=== PATIENT | female | born 1970 | race African-American/Black ===

== ENCOUNTER 2016-07-06 20:36 | Emergency (ER) | payer MEDICAID ==
[~2016-07-06] VITALS: Ht 157.5 cm; Wt 68.1 kg
[2016-07-06 20:38] VITALS: BP 96/62
== END 2016-07-06 23:19 | disposition home or self-care (01) ==
LOC: ED 23:01
DX: G89.11 Acute pain due to trauma (principal); M25.562 Pain in left knee; Z87.891 Personal history of nicotine dependence
CPT/HCPCS: 29505

== ENCOUNTER 2016-08-31 17:39 | Emergency (ER) | payer MEDICAID ==
[~2016-08-31] VITALS: Ht 157.5 cm; Wt 64.6 kg
[2016-08-31 17:44] VITALS: BP 110/61
[2016-08-31] MEDS ORDERED: HYDROcodone/APAP 5/325 TABLET PO STA (18:12)
[2016-08-31] MEDS ORDERED: HYDROcodone/APAP 5/325 TABLET ONE (18:19)
== END 2016-08-31 18:59 | disposition home or self-care (01) ==
LOC: ED 18:01
DX: S80.02XA Contusion of left knee, initial encounter (principal); W19.XXXA Unspecified fall, initial encounter; Y93.89 Activity, other specified; Y99.8 Other external cause status; Y92.89 Other specified places as the place of occurrence of the external cause

== ENCOUNTER 2016-10-02 09:43 | Emergency (ER) | payer MEDICAID ==
[~2016-10-02] VITALS: Ht 157.5 cm; Wt 63.9 kg
[2016-10-02 09:44] VITALS: BP 124/55
== END 2016-10-02 10:54 | disposition home or self-care (01) ==
LOC: ED 10:48
DX: S60.221A Contusion of right hand, initial encounter (principal); M19.90 Unspecified osteoarthritis, unspecified site; W31.9XXA Contact with unspecified machinery, initial encounter; Y93.89 Activity, other specified; Y92.009 Unspecified place in unspecified non-institutional (private) residence as the place of occurrence of the external cause; Y99.8 Other external cause status
CPT/HCPCS: 99284

== ENCOUNTER 2016-10-30 13:49 | Emergency (ER) | payer MEDICAID ==
[~2016-10-30] VITALS: Ht 157.5 cm; Wt 64.4 kg
[2016-10-30 13:52] VITALS: BP 111/74
[2016-10-30] MEDS ORDERED: IBUPROFEN 200 MG TABLET ONE (14:27)
[2016-10-30] MEDS ORDERED: IBUPROFEN 200 MG TABLET PO ONE (14:30)
== END 2016-10-30 15:20 | disposition home or self-care (01) ==
LOC: ED 15:15
DX: M17.12 Unilateral primary osteoarthritis, left knee (principal)
CPT/HCPCS: 99284

== ENCOUNTER 2017-01-08 17:53 | Emergency (ER) | payer MEDICAID ==
[~2017-01-08] VITALS: Ht 157.5 cm; Wt 64.9 kg
[2017-01-08 18:01] VITALS: BP 103/70
== END 2017-01-08 19:35 | disposition home or self-care (01) ==
LOC: ED 19:29
DX: G89.29 Other chronic pain (principal); M25.562 Pain in left knee; M25.561 Pain in right knee
CPT/HCPCS: 99284

== ENCOUNTER 2017-04-05 19:01 | Emergency (ER) | payer MEDICAID ==
[~2017-04-05] VITALS: Ht 157.5 cm; Wt 67.1 kg
[2017-04-05 19:06] VITALS: BP 101/67
== END 2017-04-05 20:57 | disposition home or self-care (01) ==
LOC: ED 20:51
DX: S63.521A Sprain of radiocarpal joint of right wrist, initial encounter (principal); M19.90 Unspecified osteoarthritis, unspecified site; Z88.8 Allergy status to other drugs, medicaments and biological substances; Z87.891 Personal history of nicotine dependence; W01.0XXA Fall on same level from slipping, tripping and stumbling without subsequent striking against object, initial encounter; Y93.89 Activity, other specified; Y92.009 Unspecified place in unspecified non-institutional (private) residence as the place of occurrence of the external cause; Y99.9 Unspecified external cause status
CPT/HCPCS: 29125; 99284

== ENCOUNTER 2017-04-28 01:21 | Emergency (ER) | payer MEDICAID ==
[~2017-04-28] VITALS: Ht 157.5 cm; Wt 67.8 kg
[2017-04-28] MEDS ORDERED: METHOCARBAMOL 750 MG TABLET ONE (02:25)
[2017-04-28] MEDS ORDERED: KETOROLAC 30 MG/1 ML ONE (02:26)
[2017-04-28] MEDS ORDERED: METHOCARBAMOL 750 MG TABLET PO ONE (02:30)
[2017-04-28] MEDS ORDERED: KETOROLAC 30 MG/1 ML IM ONE (02:30)
[2017-04-28 03:44] VITALS: BP 114/82
== END 2017-04-28 03:46 | disposition home or self-care (01) ==
LOC: ED 02:05
DX: S29.012A Strain of muscle and tendon of back wall of thorax, initial encounter (principal); W01.0XXA Fall on same level from slipping, tripping and stumbling without subsequent striking against object, initial encounter; Y93.89 Activity, other specified; Y92.89 Other specified places as the place of occurrence of the external cause; Y99.8 Other external cause status
CPT/HCPCS: 71046; 96372; 99284; J1885

== ENCOUNTER 2017-07-14 20:47 | Emergency (ER) | payer MEDICAID ==
[~2017-07-14] VITALS: Ht 157.5 cm; Wt 68.7 kg
[2017-07-14 20:53] VITALS: BP 119/80
[2017-07-14] MEDS ORDERED: IBUPROFEN 200 MG TABLET ONE (21:10)
[2017-07-14] MEDS ORDERED: IBUPROFEN 200 MG TABLET PO ONE (21:30)
== END 2017-07-14 21:54 | disposition home or self-care (01) ==
LOC: ED 21:11
DX: M67.471 Ganglion, right ankle and foot (principal)
CPT/HCPCS: 99284

== ENCOUNTER 2017-10-05 03:00 | Emergency (ER) | payer MEDICAID ==
[~2017-10-05] VITALS: Ht 157.5 cm; Wt 70.3 kg
[2017-10-05] MEDS ORDERED: IRON SUPP (03:07)
[2017-10-05] MEDS ORDERED: ONDANSETRON ODT 4 MG ONE (03:41)
[2017-10-05] MEDS ORDERED: KETOROLAC 30 MG/1 ML ONE (03:41)
[2017-10-05] MEDS ORDERED: ACETAMINOPHEN 325 MG TABLET ONE (03:42)
[2017-10-05] MEDS ORDERED: DIPHENHYDRAMINE 25 MG CAPSULE ONE (03:42)
[2017-10-05 03:56] LABS: BASOPHILS # (AUTO) 0.02 x10^3/uL (0-0.1); BASOPHILS % (AUTO) 0 % (0-1); EOSINOPHILS # (AUTO) 0.23 x10^3/uL (0-0.4); EOSINOPHILS % (AUTO) 4 % (1-7); LYMPHOCYTES # (AUTO) 2.66 x10^3/uL (1-3.4); LYMPHOCYTES % (AUTO) 44 % (22-44); MD NO; MEAN CORPUSCULAR HEMOGLOBIN 30.2 pg (27.0-34.8); MEAN CORPUSCULAR HGB CONC 33.8 g/dL (32.4-35.8); MEAN CORPUSCULAR VOLUME 89.2 fL (80-100); MEAN PLATELET VOLUME 7.2 fL (7.4-10.4); MONOCYTES # (AUTO) 0.49 x10^3/uL (0.2-0.8); MONOCYTES % (AUTO) 8 % (2-9); NEUTROPHILS # (AUTO) 2.62 x10^3/uL (1.8-6.8); NEUTROPHILS % (AUTO) 44 % (42-75); PLATELET COUNT 379 x10^3/uL (130-400); RED BLOOD COUNT 3.88 x10^6/uL (3.82-5.3)
[2017-10-05] MEDS ORDERED: ACETAMINOPHEN 325 MG TABLET PO ONE (04:00)
[2017-10-05] MEDS ORDERED: DIPHENHYDRAMINE 25 MG CAPSULE PO ONE (04:00)
[2017-10-05] MEDS ORDERED: ONDANSETRON ODT 4 MG PO ONE (04:00)
[2017-10-05] MEDS ORDERED: KETOROLAC 30 MG/1 ML IM ONE (04:00)
[2017-10-05 04:10] LABS: ALANINE AMINOTRANSFERASE 28 U/L (12-78); ALBUMIN 3.4 g/dL (3.4-5.0); ANION GAP 5 mmol/L (5-15); CALCIUM 8.4 mg/dL (8.5-10.1); CHLORIDE 107 mmol/L (98-107); CREATININE 0.92 mg/dL (0.55-1.02)
[2017-10-05 04:12] LABS: ALKALINE PHOSPHATASE 112 U/L (45-117); BILIRUBIN,TOTAL 0.4 mg/dL (0.2-1.0); TOTAL PROTEIN 6.6 g/dL (6.4-8.2)
[2017-10-05 04:18] LABS: MICROSCOPIC NOT IND
[2017-10-05 04:21] LABS: CULTURE INDICATED? NO
[2017-10-05 04:51] VITALS: BP 139/74
== END 2017-10-05 04:53 | disposition home or self-care (01) ==
LOC: ED 04:51
DX: R51 Headache (principal); M54.9 Dorsalgia, unspecified; W19.XXXA Unspecified fall, initial encounter; Y93.89 Activity, other specified; Y99.8 Other external cause status; Y92.009 Unspecified place in unspecified non-institutional (private) residence as the place of occurrence of the external cause
CPT/HCPCS: 36415; 80053; 81003; 85025; 96372; 99284; J1885; Q0162; Q0163

== ENCOUNTER 2017-11-06 20:27 | Emergency (ER) | payer MEDICAID ==
[~2017-11-06] VITALS: Ht 157.5 cm; Wt 69.3 kg
[~2017-11-06 20:27] MED LIST: IRON SUPP
[2017-11-06] MEDS ORDERED: KETOROLAC 30 MG/1 ML ONE (20:44)
[2017-11-06] MEDS ORDERED: METOCLOPRAMIDE 5 MG/ML, 2ML ONE (20:44)
[2017-11-06] MEDS ORDERED: METOCLOPRAMIDE 5 MG/ML, 2ML IVPush ONE (21:00)
[2017-11-06] MEDS ORDERED: SODIUM CHLORIDE FLUSH 10ML SYR IVF ONE (21:00)
[2017-11-06] MEDS ORDERED: DIPHENHYDRAMINE 50 MG/ML, 1ML IVPush ONE (21:00)
[2017-11-06] MEDS ORDERED: KETOROLAC 30 MG/1 ML IVPush ONE (21:00)
[2017-11-06 22:46] VITALS: BP 116/78
== END 2017-11-06 22:48 | disposition home or self-care (01) ==
LOC: ED 20:49
DX: G44.219 Episodic tension-type headache, not intractable (principal); Z87.891 Personal history of nicotine dependence
CPT/HCPCS: 96374; 96375; 99284; J1200; J1885; J2765

== ENCOUNTER 2017-12-10 16:03 | Emergency (ER) | payer MEDICAID ==
[~2017-12-10] VITALS: Ht 157.5 cm; Wt 67.0 kg
[2017-12-10 16:11] VITALS: BP 106/71
== END 2017-12-10 17:30 | disposition home or self-care (01) ==
LOC: ED 17:06
DX: J06.9 Acute upper respiratory infection, unspecified (principal); R11.2 Nausea with vomiting, unspecified
CPT/HCPCS: 71046; 87081; 87880; 99285

== ENCOUNTER 2018-03-02 15:35 | Emergency (ER) | payer MEDICAID ==
[~2018-03-02] VITALS: Ht 157.5 cm; Wt 69.9 kg
[2018-03-02 15:49] VITALS: BP 120/74
== END 2018-03-02 16:54 | disposition home or self-care (01) ==
LOC: ED 16:36
DX: S93.491A Sprain of other ligament of right ankle, initial encounter (principal); S80.01XA Contusion of right knee, initial encounter; W07.XXXA Fall from chair, initial encounter; Y93.89 Activity, other specified; Y92.89 Other specified places as the place of occurrence of the external cause; Y99.8 Other external cause status
CPT/HCPCS: 99283

== ENCOUNTER 2018-03-15 21:24 | Emergency (ER) | payer MEDICAID ==
[~2018-03-15] VITALS: Ht 177.8 cm; Wt 69.2 kg
[2018-03-15 21:34] VITALS: BP 110/67
--- NOTE | 2018-03-15 22:00 | NUR ---
TAKEN TO RAD
--- NOTE | 2018-03-15 22:50 | NUR ---
TECH AT BEDSIDE APPLYING IMMOBILIZER AND DOING CRUTCH TEACHING
== END 2018-03-15 23:04 | disposition home or self-care (01) ==
LOC: ED 21:49
DX: S83.411A Sprain of medial collateral ligament of right knee, initial encounter (principal); M19.90 Unspecified osteoarthritis, unspecified site; G43.909 Migraine, unspecified, not intractable, without status migrainosus; Z87.891 Personal history of nicotine dependence; X50.1XXA Overexertion from prolonged static or awkward postures, initial encounter; Y93.89 Activity, other specified; Y92.009 Unspecified place in unspecified non-institutional (private) residence as the place of occurrence of the external cause; Y99.8 Other external cause status
CPT/HCPCS: 29505; 99283

== ENCOUNTER 2018-06-13 16:30 | Emergency (ER) | payer MEDICAID ==
[~2018-06-13] VITALS: Ht 157.5 cm; Wt 68.0 kg
[2018-06-13 16:37] VITALS: BP 113/75
[2018-06-13] MEDS ORDERED: HYDROcodone/APAP 5/325 TABLET ONE (18:24)
[2018-06-13] MEDS ORDERED: HYDROcodone/APAP 5/325 TABLET PO ONE (18:30)
== END 2018-06-13 18:34 | disposition home or self-care (01) ==
LOC: ED 17:14
DX: M13.861 Other specified arthritis, right knee (principal); Z87.891 Personal history of nicotine dependence
CPT/HCPCS: 99283

== ENCOUNTER 2019-04-05 18:00 | Emergency (ER) | payer MEDICAID ==
[~2019-04-05] VITALS: Ht 157.5 cm; Wt 85.9 kg
[2019-04-05 18:04] VITALS: BP 116/61
--- NOTE | 2019-04-05 18:52 | NUR ---
Patient/Caregiver given discharge instructions and they have confirmed that they understand the instructions. Patient ambulatory with steady gait. PT LEFT WITH ALL PERSONAL BELONGINGS.
== END 2019-04-05 18:54 | disposition home or self-care (01) ==
LOC: ED 18:45
DX: M17.11 Unilateral primary osteoarthritis, right knee (principal); G89.11 Acute pain due to trauma; G43.909 Migraine, unspecified, not intractable, without status migrainosus; Z87.891 Personal history of nicotine dependence; W01.198A Fall on same level from slipping, tripping and stumbling with subsequent striking against other object, initial encounter; Y93.89 Activity, other specified; Y92.89 Other specified places as the place of occurrence of the external cause; Y99.8 Other external cause status
CPT/HCPCS: 99283